=== PATIENT | male | born 1945 | race Caucasian/White ===

== ENCOUNTER → 2019-03-01 | Outpatient (CLI) | payer MEDICARE ==
[~2019-03-01] MED LIST: DIATR MEGLU/DIATRIZOATE SODIUM 30 ML BOTTLE ONE
== END | disposition home or self-care (01) ==
LOC: RAH 10:20
PROVIDERS: ATTEND Physician Assistant Medical
DX: M41.9 Scoliosis, unspecified (principal); M85.88 Other specified disorders of bone density and structure, other site; M51.35 Other intervertebral disc degeneration, thoracolumbar region
CPT/HCPCS: 74018; Q9963